=== PATIENT | male | born 1990 | race African-American/Black ===

== ENCOUNTER 2018-07-09 17:57 | Emergency (ER) | payer SELFPAY ==
[~2018-07-09] VITALS: Ht 193 cm; Wt 129.6 kg
[2018-07-09] MEDS ORDERED: D ME PO (18:02)
[2018-07-09] MEDS ORDERED: ACET-2247 PO (18:02)
[2018-07-09] MEDS ORDERED: ACETAMINOPHEN 500 MG TABLET PO ONE (19:00)
[2018-07-09 19:27] LABS: INFLUENZA TYPE A NEGATIVE FOR TYPE A (NEGATIVE); INFLUENZA TYPE B NEGATIVE FOR TYPE B (NEGATIVE)
[2018-07-09 21:30] VITALS: BP 132/88
[2018-07-09] MEDS ORDERED: BENZONATATE 100 MG CAPSULE PO ONE (21:30)
[2018-07-09] MEDS ORDERED: AZITHROMYCIN 250 MG TABLET PO ONE (21:30)
== END 2018-07-09 21:50 | disposition home or self-care (01) ==
LOC: EMS 17:57
DX: J40 Bronchitis, not specified as acute or chronic (principal)
CPT/HCPCS: 87804

== ENCOUNTER 2019-01-17 23:21 | Emergency (ER) | payer MEDICAID, OTHER ==
[~2019-01-17] VITALS: Ht 193 cm; Wt 111.4 kg
[~2019-01-17 23:21] MED LIST: ACET-2247 PO; D ME PO
[2019-01-18] MEDS ORDERED: IBUPROFEN 800 MG TABLET PO ONE
[2019-01-18 00:45] VITALS: BP 142/73
== END 2019-01-18 01:28 | disposition home or self-care (01) ==
LOC: EMS 23:22
DX: M25.562 Pain in left knee (principal); M79.642 Pain in left hand; W01.0XXA Fall on same level from slipping, tripping and stumbling without subsequent striking against object, initial encounter; Y93.89 Activity, other specified; Y92.69 Other specified industrial and construction area as the place of occurrence of the external cause; Y99.0 Civilian activity done for income or pay

== ENCOUNTER 2019-04-21 21:34 | Emergency (ER) | payer MEDICAID, OTHER ==
[~2019-04-21] VITALS: Ht 188 cm; Wt 122.7 kg
[2019-04-22 00:08] VITALS: BP 121/74
== END 2019-04-22 00:10 | disposition home or self-care (01) ==
LOC: EMS 21:34
DX: J06.9 Acute upper respiratory infection, unspecified (principal)

== ENCOUNTER 2020-12-07 18:59 | Emergency (ER) | payer MEDICAID ==
[~2020-12-07] VITALS: Ht 193 cm; Wt 145.4 kg
[2020-12-07 22:19] VITALS: BP 154/81
== END 2020-12-07 22:57 | disposition home or self-care (01) ==
LOC: EMS 18:59
DX: K08.89 Other specified disorders of teeth and supporting structures (principal); I10 Essential (primary) hypertension
CPT/HCPCS: 99283; Z7502

== ENCOUNTER 2025-01-06 08:06 | Emergency (ER) | payer OTHER, MEDICAID ==
[~2025-01-06] VITALS: Ht 193 cm; Wt 145.4 kg
[2025-01-06 08:10] VITALS: BP 145/94; PULSE 65; RESP 18; TEMP 98.1; O2SAT 98
[2025-01-06] MEDS ORDERED: CIPR-515 PO (08:26)
[2025-01-06] MEDS ORDERED: NEOM10SO24 AD (08:26)
[2025-01-06] MEDS ORDERED: ACET-3385 PO (08:26)
[2025-01-06] MEDS: CIPROFLOXACIN HCL 250 MG TABLET PO ONE (09:14)
[2025-01-06] MEDS: NEOMYCIN/POLYMYXIN B/HYDROCORT 10 ML OTIC SOLUTION AD ONE (09:14)
== END 2025-01-06 09:17 | disposition home or self-care (01) ==
LOC: EMS 08:09
DX: H60.91 Unspecified otitis externa, right ear (principal); I10 Essential (primary) hypertension
CPT/HCPCS: 99283